=== PATIENT | male | born 1970 | race Caucasian/White ===

== ENCOUNTER 2019-11-05 05:48 | Emergency (ER) | payer OTHER ==
[~2019-11-05] VITALS: Ht 188 cm; Wt 145.2 kg
--- NOTE | ~2019-11-05 | EKG ---
[place] [address] ELECTROCARDIOGRAM REPORT Name: JENNIFER PARRA [id number] Admission: 11/05/19 Attend Phys: Discharge: 11/05/19 Date of : 68 Date of Service: 11/05/1953 Report #: [id number] THIS REPORT FOR: cc: FAM - No family physician/PCP FAM - No family physician/PCP Gus Weber MD ~ THIS REPORT FOR: //name// [facility] ED Test Date: 2019-11-05 Test Time: 06:52:30 Pat Name: JENNIFER PARRA Department: Room: Gender: M Certified Ophthalmic Technician: LORI : 1970 Requested By: Jose Birch Order Number: [id number] Reading MD: Measurements Intervals [place] Rate: 82 P: 56 KS: 137 QRS: 65 QRSD: 98 T: 50 QT: 373 QTc: 436 Interpretive Statements Sinus rhythm Probable left atrial enlargement ST elev, probable normal early repol pattern No previous ECG available for comparison [email or web address] By: [id number] Epiphany Epiphany, /EPI
[2019-11-05 07:32] LABS: ABSOLUTE EOSINOPHILS 0.1 thou/uL (0.0-0.7); ABSOLUTE LYMPHOCYTES 1.7 thou/uL (0.8-5.3); ABSOLUTE MONOCYTES 0.7 thou/uL (0.0-1.2); ABSOLUTE NEUTROPHILS 6.4 thou/uL (1.6-8.1); BASOPHILS 0.5 %; EOSINOPHILS 1.2 %; HEMATOCRIT 47.5 % (42.0-52.0); HEMOGLOBIN 16.2 gm/dL (14.0-18.0); LYMPHOCYTES 19.2 %; MCH 30.8 pg (26.0-34.0); MCHC 34.1 g/dL (28.0-37.0); MCV 90.3 fL (80.0-100.0); MONOCYTES 7.8 %; NUCLEATED RBCS 0 /100WBC; PLATELET COUNT* 254 thou/uL (150-400); POLYS 71.3 %; RBC 5.26 mil/uL (4.50-6.00); RDW-CV 14.9 % (10.5-14.5)
[2019-11-05 07:40] LABS: CALCIUM 8.2 mg/dL (8.5-10.1); CREATININE 0.9 mg/dL (0.6-1.3); POTASSIUM 4.3 mmol/L (3.5-5.1)
[2019-11-05 07:45] LABS: ALBUMIN 3.7 g/dL (3.4-5.0); TOTAL BILIRUBIN 0.4 mg/dL (<0.1-1.0); TOTAL PROTEIN 7.6 g/dL (6.4-8.2)
[2019-11-05 07:46] LABS: URINE BILIRUBIN NEGATIVE (Negative); URINE BLOOD TRACE (Negative); URINE CLARITY CLEAR; URINE COLOR YELLOW; URINE GLUCOSE-RANDOM NEGATIVE (Negative); URINE KETONES NEGATIVE (Negative); URINE LEUKOCYTES-REFLEX NEGATIVE (Negative); URINE NITRITE-REFLEX NEGATIVE (Negative); URINE PROTEIN NEGATIVE (Negative); URINE SPECIFIC GRAVITY 1.025 (1.005-1.030); URINE UROBILINOGEN 0.2 E.U./dl (0.2-1.0)
[2019-11-05 07:57] LABS: ALCOHOL 41 mg/dL (<10); SALICYLATE 2.7 mg/dL (2.8-20.0)
[2019-11-05 07:59] LABS: ACETAMINOPHEN < 10 ug/mL (10-30)
[2019-11-05 08:02] LABS: AMP/METHAMP Negative (Negative); BARBITURATES Negative (Negative); BENZODIAZEPINES Negative (Negative); COCAINE Negative (Negative); METHADONE Negative (Negative); OPIATES Negative (Negative); PCP Negative (Negative); THC Negative (Negative)
[2019-11-05 10:53] VITALS: BP 149/79
== END 2019-11-05 10:53 | disposition home or self-care (01) ==
LOC: M.ERS 05:48
PROVIDERS: Emergency Medicine Emergency Medical Services
DX: F32.9 Major depressive disorder, single episode, unspecified (principal); F10.129 Alcohol abuse with intoxication, unspecified; Y90.2 Blood alcohol level of 40-59 mg/100 ml; G62.9 Polyneuropathy, unspecified

== ENCOUNTER → 2019-11-05 | Emergency (ER) | payer OTHER | LOC: M.ERS 05:30 | DX: Z53.21 Procedure and treatment not carried out due to patient leaving prior to being seen by health care provider (principal) ==